=== PATIENT | male | born 1975 | race Two or more races ===

== ENCOUNTER → 2024-12-07 | Emergency (ER) | payer OTHER ==
[~2024-12-07] VITALS: Ht 180.3 cm; Wt 81.6 kg
[~2024-12-07] MED LIST: 0.9 % SODIUM CHLORIDE 500 ML IV ONE; MULTIVIT INFUSN,ADULT 4,VIT K 10 ML VIAL IV SCH
== END | disposition left against medical advice (07) ==
LOC: ER 08:48
DX: F10.129 Alcohol abuse with intoxication, unspecified (principal)